=== PATIENT | male | born 1975 | race Caucasian/White ===

== ENCOUNTER → 2023-05-21 | Outpatient (CLI) | payer BC ==
--- NOTE | 2023-05-21 15:40 | US ---
EXAMINATION TYPE: US Aorta Screening DATE OF EXAM: 05/21/2023 COMPARISON: NONE CLINICAL INDICATION: Male, 47 years old with history of Z82.49 FAMILY HISTORY OF ISCHEMIC HEART DISEA SE AN; Hx HTN; Family history - grandfather with AAA. TECHNIQUE: Multiple sonographic images of the abdominal aorta are obtained. FINDINGS: EXAM MEASUREMENTS: Abdominal Aorta: Proximal: 2.4 x 2.8 cm Mid: 2.0 x 2.3 cm Distal: 1.8 x 2.3 cm Bifurcation: Right Iliac: 1.2 x 1.7 cm Left Iliac: 1.2 x 1.1 cm IMPRESSION: Ectatic proximal abdominal aorta at 2.8 cm. No evidence for AAA. The right common iliac artery is als o minimally ectatic at 1.7 cm.
== END | disposition home or self-care (01) ==
LOC: RADUSWWP 08:04
PROVIDERS: ATTEND Family Medicine
DX: Z13.6 Encounter for screening for cardiovascular disorders (principal); I10 Essential (primary) hypertension; I77.811 Abdominal aortic ectasia; Z82.49 Family history of ischemic heart disease and other diseases of the circulatory system
CPT/HCPCS: 76706

== ENCOUNTER → 2023-11-19 | Outpatient (CLI) | payer BC ==
--- NOTE | 2023-12-08 16:03 | US ---
EXAMINATION TYPE: US Aorta Screening DATE OF EXAM: 12/07/2023 COMPARISON: NONE CLINICAL INDICATION: Male, 48 years old with history of SCREENING; TECHNIQUE: Multiple sonographic images of the abdominal aorta are obtained. FINDINGS: EXAM MEASUREMENTS: Abdominal Aorta: Proximal: 2.8 X 2.9 CM Mid: 2.4 X 2.2 CM Distal: 2.0 X 2.0 CM Bifurcation: Right Iliac: 1.3 X 1.2 CM Left Iliac: 1.4 X 1.1 CM TIER LIFT TRUCK OPERATOR NOTES: IMPRESSION: Proximal abdominal aorta ectasia. No evidence for aneurysm.
== END | disposition home or self-care (01) ==
LOC: RADUSWWP 12:00
PROVIDERS: ATTEND Family Medicine
DX: I77.811 Abdominal aortic ectasia (principal)
CPT/HCPCS: 76706

== ENCOUNTER → 2024-05-03 | Outpatient (CLI) | payer BC ==
[2024-05-03 12:49] LABS: HCT 48.5 % (39.6-50.0); HGB 15.2 g/dL (13.0-17.0); MCH 28.8 pg (27.0-32.0); MCHC 31.3 g/dL (32.0-37.0); MCV 91.9 FL (80.0-97.0); Mean Platelet Volume 12.6 FL (9.5-12.2); NRBC Per 100 WBC 0 X 10*3/uL (0.00-0.01); Platelet Count 220 X 10*3/uL (140-440); RBC 5.28 X 10*6/uL (4.40-5.60); RDW 12.8 % (11.5-14.5)
[2024-05-03 13:35] LABS: ALT 30 U/L (10-49); AST 21 U/L (14-35); Blood Urea Nitrogen 18.6 mg/dL (9.0-27.0); Calcium 9.4 mg/dL (8.7-10.3); Carbon Dioxide 28.5 mmol/L (21.6-31.8); Chloride 104 mmol/L (96-109); Chol/HDL Ratio 4.11 Ratio; Glucose 101 mg/dL (70-110); LDL Cholesterol,Calculated 105.1 mg/dL (0.0-131.0); Potassium 4.3 mmol/L (3.5-5.5); Prostate Specific Antigen 0.97 ng/mL (0.000-2.500); Sodium 142 mmol/L (135-145)
[2024-05-03 13:47] LABS: Appearance,Urine Clear (Clear); Bilirubin,Urine Negative (Negative); Blood,Urine Negative (Negative); Color,Urine Yellow (Yellow); Ketones,Urine Negative (Negative); Nitrite,Urine Negative (Negative); PH, Urine 6.5; Specific Gravity,Urine 1.019 (1.001-1.030); Urobilinogen,Urine 0.2 E.U./DL
== END | disposition home or self-care (01) ==
LOC: LABWHC1 08:27
PROVIDERS: ATTEND Family Medicine
DX: I10 Essential (primary) hypertension (principal); N40.0 Benign prostatic hyperplasia without lower urinary tract symptoms; E78.5 Hyperlipidemia, unspecified
CPT/HCPCS: 36415; 80048; 80061; 81003; 84153; 84450; 84460; 85027

== ENCOUNTER → 2024-06-13 | Outpatient (CLI) | payer BC ==
--- NOTE | 2024-06-13 07:39 | US ---
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 FINDINGS: EXAM MEASUREMENTS: Abdominal Aorta: Proximal: 2.2 x 2.0 cm Mid: 2.0 x 1.9 cm Distal: 1.6 x 1.5 cm Bifurcation: Right Iliac: 0.9 x 0.8 cm Left Iliac: 1.0 x 1.1 cm SUPERVISOR RECORD PRESS NOTES: No evidence of AAA Aortic successfully visualized through the bifurcation. IMPRESSION: No evidence for aortic aneurysm. No further workup recommended for negative screening aortic aneurysm ultrasound. [facility], , 06/13/2024 7:37 AM
== END | disposition home or self-care (01) ==
LOC: RADUSWWP 06:55
PROVIDERS: ATTEND Family Medicine
DX: Z13.6 Encounter for screening for cardiovascular disorders (principal); I77.811 Abdominal aortic ectasia
CPT/HCPCS: 76706